=== PATIENT | male | born 1985 | race African-American/Black ===

== ENCOUNTER 2016-08-11 19:57 | Emergency (ER) | payer OTHER ==
[~2016-08-11] VITALS: Ht 188 cm; Wt 100.0 kg
[2016-08-11 20:15] VITALS: BP 132/87
== END 2016-08-11 22:44 | disposition left against medical advice (07) ==
LOC: EMS 19:59
DX: J02.9 Acute pharyngitis, unspecified (principal); Z87.891 Personal history of nicotine dependence; Z53.21 Procedure and treatment not carried out due to patient leaving prior to being seen by health care provider

== ENCOUNTER 2016-09-05 12:52 | Emergency (ER) | payer OTHER ==
[~2016-09-05] VITALS: Ht 188 cm; Wt 90.9 kg
[2016-09-05] MEDS: KETOROLAC TROMETHAMINE 60 MG/2 ML VIAL IM ONE ×2 (14:25→14:58)
[2016-09-05 15:08] VITALS: BP 124/76
== END 2016-09-05 15:14 | disposition home or self-care (01) ==
LOC: EMS 12:54
DX: S23.3XXA Sprain of ligaments of thoracic spine, initial encounter (principal); M62.830 Muscle spasm of back; Z87.891 Personal history of nicotine dependence; X58.XXXA Exposure to other specified factors, initial encounter; Y93.89 Activity, other specified; Y92.89 Other specified places as the place of occurrence of the external cause; Y99.8 Other external cause status
CPT/HCPCS: 99283; J1885

== ENCOUNTER 2016-09-12 19:38 | Emergency (ER) | payer OTHER ==
[~2016-09-12] VITALS: Ht 188 cm; Wt 95.5 kg
[2016-09-12 20:33] LABS: INFLUENZA TYPE B NEGATIVE FOR TYPE B (NEGATIVE)
[2016-09-12 22:52] VITALS: BP 131/78
== END 2016-09-12 22:53 | disposition home or self-care (01) ==
LOC: EMS 19:40
DX: J32.9 Chronic sinusitis, unspecified (principal); J40 Bronchitis, not specified as acute or chronic; Z87.891 Personal history of nicotine dependence
CPT/HCPCS: 87804; 99284

== ENCOUNTER 2016-10-13 15:18 | Emergency (ER) | payer OTHER ==
[~2016-10-13] VITALS: Ht 188 cm; Wt 109.0 kg
[2016-10-13 15:33] VITALS: BP 132/81
== END 2016-10-13 19:09 | disposition left against medical advice (07) ==
LOC: EMS 15:20
DX: K08.89 Other specified disorders of teeth and supporting structures (principal); F17.210 Nicotine dependence, cigarettes, uncomplicated; Z53.21 Procedure and treatment not carried out due to patient leaving prior to being seen by health care provider

== ENCOUNTER 2017-03-02 13:18 | Emergency (ER) | payer OTHER ==
[~2017-03-02] VITALS: Ht 188 cm; Wt 111.8 kg
[2017-03-02] MEDS ORDERED: PERTUSS(ACELL),DIPH,TET VAC/PF 0.5 ML VIAL IM ONE (14:45)
[2017-03-02] MEDS ORDERED: HYDROCODONE/ACETAMINOPHEN 5-325 MG TABLET PO ONE (14:45)
[2017-03-02] MEDS ORDERED: BENZOCAINE 20%/MENTHOL 56 GM SPRAY CANISTER TP ONE (15:30)
[2017-03-02 15:54] VITALS: BP 145/64
== END 2017-03-02 16:14 | disposition home or self-care (01) ==
LOC: EMS 13:19
DX: S61.213A Laceration without foreign body of left middle finger without damage to nail, initial encounter (principal); W23.0XXA Caught, crushed, jammed, or pinched between moving objects, initial encounter; Y93.89 Activity, other specified; Y92.89 Other specified places as the place of occurrence of the external cause; Y99.8 Other external cause status
CPT/HCPCS: 90471; 90715; 99284

== ENCOUNTER 2017-04-11 13:43 | Emergency (ER) | payer OTHER ==
[~2017-04-11] VITALS: Ht 188 cm; Wt 112.0 kg
[2017-04-11 14:54] VITALS: BP 134/101
[2017-04-11] MEDS ORDERED: DONNATAL/LIDOCAINE/MAALOX 55 ML BOTTLE PO ONE (15:00)
[2017-04-11 15:25] LABS: BASOPHILS % (AUTO) 0.4 % (0.0-2.0); EOSINOPHILS % (AUTO) 0.8 % (1.0-6.0); HEMATOCRIT 49.2 % (41-53); HEMOGLOBIN 16.5 g/dL (13.5-17.5); LYMPHOCYTES # (AUTO) 1.5 K/uL (1.0-4.8); LYMPHOCYTES % (AUTO) 18.3 % (22.0-44.0); MEAN CORPUSCULAR HEMOGLOBIN 30.6 pg (26.0-34.0); MEAN CORPUSCULAR HGB CONC 33.6 G/dL (31.0-37.0); MEAN CORPUSCULAR VOLUME 91 fL (80-100); MONOCYTES # (AUTO) 0.7 K/uL (0.1-1.0); MONOCYTES % (AUTO) 8.3 % (2.0-9.0); NEUTROPHILS % (AUTO) 72.2 % (40.0-70.0); PLATELET COUNT (AUTO) 237 K/uL (150-450); RED BLOOD CELL COUNT(AUTO) 5.41 MIL/uL (4.50-5.90); RED CELL DISTRIBUTION WIDTH 14.7 % (11.5-14.5); WHITE BLOOD COUNT (AUTO) 8.4 K/uL (4.5-11.0)
[2017-04-11 15:36] LABS: ANION GAP 7 mmol/L (8-16); CALCIUM, TOTAL 8.8 mg/dL (8.8-10.5); CARBON DIOXIDE 30 mmol/L (22-29); CHLORIDE 104 mmol/L (98-107); CREATININE 1.22 mg/dL (0.60-1.30); GLOMERULAR FILTR. RATE CALC > 60 mL/min (>60); POTASSIUM 4.2 mmol/L (3.5-5.1); SODIUM SERUM 141 mmol/L (136-145); UREA NITROGEN, BLOOD 12 mg/dL (7-18)
[2017-04-11 15:42] LABS: ALANINE AMINOTRANSFERASE 27 U/L (12-78); ALBUMIN 3.7 g/dL (3.4-5.0); ASPARTATE AMINOTRANSFERASE 17 U/L (15-37); BILIRUBIN,TOTAL 0.4 mg/dL (0.1-1.0); TOTAL PROTEIN, SERUM 7.3 g/dL (6.4-8.2)
[2017-04-11 15:53] LABS: RBC MORPHOLOGY COMMENT NORMAL RBC MORPH
== END 2017-04-11 16:57 | disposition home or self-care (01) ==
LOC: EMS 13:45
DX: K29.70 Gastritis, unspecified, without bleeding (principal); F17.210 Nicotine dependence, cigarettes, uncomplicated; F12.90 Cannabis use, unspecified, uncomplicated
CPT/HCPCS: 36415; 80053; 83690; 85025; 99284; 99406; Z7610

== ENCOUNTER 2017-04-27 21:29 | Emergency (ER) | payer OTHER ==
[~2017-04-27] VITALS: Ht 188 cm; Wt 109.1 kg
[2017-04-27 21:41] VITALS: BP 139/87
== END 2017-04-27 22:17 | disposition home or self-care (01) ==
LOC: EMS 21:31
DX: Z01.30 Encounter for examination of blood pressure without abnormal findings (principal); I10 Essential (primary) hypertension; F12.90 Cannabis use, unspecified, uncomplicated; F17.210 Nicotine dependence, cigarettes, uncomplicated
CPT/HCPCS: 99281

== ENCOUNTER 2017-06-29 17:02 | Emergency (ER) | payer OTHER ==
[~2017-06-29] VITALS: Ht 188 cm; Wt 109.1 kg
[2017-06-29] MEDS ORDERED: AMOX250C4 PO (17:07)
[2017-06-29] MEDS ORDERED: GUAI100L89 PO (17:07)
[2017-06-29] MEDS ORDERED: KETOROLAC TROMETHAMINE 60 MG/2 ML VIAL IM ONE (17:45)
[2017-06-29 18:14] VITALS: BP 143/79
== END 2017-06-29 18:15 | disposition home or self-care (01) ==
LOC: EMS 17:03
DX: J06.9 Acute upper respiratory infection, unspecified (principal); J20.9 Acute bronchitis, unspecified; F17.210 Nicotine dependence, cigarettes, uncomplicated; F12.90 Cannabis use, unspecified, uncomplicated
CPT/HCPCS: 71020; 96372; 99284; 99406; J1885; 71046

== ENCOUNTER 2017-11-03 14:16 | Emergency (ER) | payer OTHER ==
[~2017-11-03 14:16] MED LIST: AMOX250C4 PO; GUAI100L89 PO
== END 2017-11-03 16:05 | disposition left against medical advice (07) ==
LOC: EMS 14:17
DX: Z53.21 Procedure and treatment not carried out due to patient leaving prior to being seen by health care provider (principal)

== ENCOUNTER 2018-07-06 09:46 | Emergency (ER) | payer MEDICAID, OTHER ==
[~2018-07-06] VITALS: Ht 188 cm; Wt 109.1 kg
[2018-07-06] MEDS ORDERED: SILVER SULFADIAZINE 1% 25 GM CREAM TP ONE (10:45)
[2018-07-06 11:13] VITALS: BP 125/79
== END 2018-07-06 12:07 | disposition home or self-care (01) ==
LOC: EMS 09:46
DX: T24.232A Burn of second degree of left lower leg, initial encounter (principal); F41.9 Anxiety disorder, unspecified; F12.90 Cannabis use, unspecified, uncomplicated; F17.210 Nicotine dependence, cigarettes, uncomplicated; X16.XXXA Contact with hot heating appliances, radiators and pipes, initial encounter; Y93.89 Activity, other specified; Y92.89 Other specified places as the place of occurrence of the external cause; Y99.8 Other external cause status
CPT/HCPCS: 16020; 99406

== ENCOUNTER 2018-12-30 08:50 | Emergency (ER) | payer SELFPAY ==
[~2018-12-30] VITALS: Ht 188 cm; Wt 106.8 kg
[~2018-12-30 08:50] MED LIST changes: -GUAI100L89 PO; +GUAI100S72 PO
[2018-12-30 10:35] VITALS: BP 149/88
== END 2018-12-30 10:45 | disposition home or self-care (01) ==
LOC: EMS 08:50
DX: I88.9 Nonspecific lymphadenitis, unspecified (principal); F41.9 Anxiety disorder, unspecified; F17.210 Nicotine dependence, cigarettes, uncomplicated; F12.90 Cannabis use, unspecified, uncomplicated

== ENCOUNTER 2022-02-01 00:20 | Emergency (ER) | payer OTHER ==
[~2022-02-01] VITALS: Ht 188 cm; Wt 85.0 kg
[2022-02-01] MEDS ORDERED: GENTAMICIN SULFATE 0.3% OPHTHALMIC SOLUTION 5 ML OS ONE (02:00)
[2022-02-01] MEDS ORDERED: ACETAMINOPHEN 500 MG TABLET PO ONE (02:00)
[2022-02-01 02:30] VITALS: BP 145/96
== END 2022-02-01 02:52 | disposition home or self-care (01) ==
LOC: EMS 00:23
DX: H10.32 Unspecified acute conjunctivitis, left eye (principal); F41.9 Anxiety disorder, unspecified; F17.210 Nicotine dependence, cigarettes, uncomplicated; F12.90 Cannabis use, unspecified, uncomplicated
CPT/HCPCS: 99283

== ENCOUNTER 2024-04-18 12:04 | Emergency (ER) | payer OTHER ==
[~2024-04-18] VITALS: Ht 188 cm; Wt 104.5 kg
[2024-04-18 12:12] VITALS: TEMP 98.3
[2024-04-18] MEDS ORDERED: AMLO-257 PO (12:44)
[2024-04-18] MEDS: AmLODIPine BESYLATE 5 MG TABLET PO ONE (12:57)
[2024-04-18] MEDS: LORazepam 1 MG TABLET PO ONE (12:57)
[2024-04-18 13:39] VITALS: BP 154/101; PULSE 84; RESP 18; O2SAT 99
== END 2024-04-18 13:40 | disposition home or self-care (01) ==
LOC: EMS 12:05
DX: F41.9 Anxiety disorder, unspecified (principal); I10 Essential (primary) hypertension; F12.90 Cannabis use, unspecified, uncomplicated; F17.210 Nicotine dependence, cigarettes, uncomplicated
CPT/HCPCS: 99283